=== PATIENT | male | born 1960 | race Caucasian/White ===

== ENCOUNTER 2017-01-13 14:44 | Emergency (ER) | payer OTHER ==
[~2017-01-13] VITALS: Ht 175.3 cm; Wt 77.1 kg
[2017-01-13] MEDS ORDERED: APRI0.37 PO (14:52)
[2017-01-13] MEDS ORDERED: NS 1,000 ML IV ONE (16:30)
[2017-01-13 17:15] LABS: BASO % 0.1 % (0.0-1.0); EOS # 0.1 K/mm3 (0.0-0.50); EOS % 0.5 % (0.0-3.0); LARGE UNSTAINED CELL # 0.1 K/mm3 (0.0-0.4); LARGE UNSTAINED CELL % 0.6 % (0.0-4.0); LYMPH # 0.5 K/mm3 (1.5-4.5); LYMPH % 2.8 % (24.0-44.0); MEAN CORPUSCULAR HEMOGLOBIN 29.3 pg (27.0-33.0); MEAN CORPUSCULAR HGB CONC 33.1 g/dl (32.0-36.5); MEAN CORPUSCULAR VOLUME 88.3 fl (80.0-96.0); MONO # 0.9 K/mm3 (0.0-0.8); MONO % 5.2 % (0.0-5.0); NEUTROPHILS % 90.7 % (36.0-66.0); PLATELET COUNT, AUTOMATED 273 k/mm3 (150-450); RED CELL DISTRIBUTION WIDTH 12.2 % (11.5-14.5); WHITE BLOOD COUNT 16.5 K/mm3 (4.0-10.0)
[2017-01-13 17:34] LABS: ALBUMIN/GLOBULIN RATIO 1.29 (1.00-1.93); ALKALINE PHOSPHATASE 87 U/L (45-117); ALT/SGPT 28 U/L (12-78); ANION GAP 10 MEQ/L (8-16); AST/SGOT 20 U/L (15-37); BILIRUBIN,DIRECT 0.2 MG/DL (0.0-0.2); BILIRUBIN,TOTAL 0.9 MG/DL (0.2-1.0); BLOOD UREA NITROGEN 18 MG/DL (7-18); CALCIUM LEVEL 8.9 MG/DL (8.5-10.1); CARBON DIOXIDE LEVEL 27 MEQ/L (21-32); CHLORIDE LEVEL 105 MEQ/L (98-107); CREATININE FOR GFR 1.04 MG/DL (0.70-1.30); GLOMERULAR FILTRATION RATE > 60.0 (>56); GLUCOSE, FASTING 138 MG/DL (70-105); POTASSIUM SERUM 4.5 MEQ/L (3.5-5.1); SODIUM LEVEL 142 MEQ/L (136-145); TOTAL PROTEIN 7.1 GM/DL (6.4-8.2)
[2017-01-13] MEDS ORDERED: ISOVUE-370 76% 100ML VIAL (Q9967) As Ordered ONE (17:37)
--- NOTE | 2017-01-13 18:40 | REPUSA ---
CLINICAL HISTORY: Abdominal pain. TECHNIQUE: Multiple axial, sagittal and coronal CT images were obtained through the abdomen and pelvi s after administration of intravenous contrast material. COMMENTS: The liver is of uniform attenuation without mass or defect. There is no intra or extrahepatic biliary ductal dilatation. The spleen is normal. The gallbladder is within normal limits. The pancreas is of normal contour and attenuation characteristics. There is no evidence of adrenal mass. Both kidneys demonstrate prompt and equal nephrograms. The kidneys are normal in size, shape and conf iguration. There is no evidence of renal or ureteral mass. No renal or ureteral calculi are identifie d. There is no hydroureter or hydronephrosis. S/p ventral hernia repair. No evidence for appendicitis. There is wall thickening noted involving sigmoid colon compatible wit h colitis. Small amount of free pelvic fluid and inflammatory stranding is seen . Large amount of fe joann material is noted in the right colon. No evidence for small or large bowel obstruction. There i s no evidence of abdominal ascites or lymphadenopathy. There is no evidence of intrinsic or extrinsic bladder mass. There is no pelvic ascites or lymphadeno som. Images of the lung bases show no evidence of pleural or parenchymal mass. There are no pleural effusi ons. The bony structures are free of lytic or blastic lesions. Multilevel degenerative changes are seen in volving the thoracolumbar spine. Scattered calcifications are seen involving the aorta and major bran ches compatible with atherosclerosis. IMPRESSION: There is wall thickening noted involving sigmoid colon compatible with colitis. Small amount of free pelvic fluid and inflammatory stranding is seen Thank you for your kind referral of this patient.
[2017-01-13] MEDS ORDERED: CIPR500T89 PO (18:49)
[2017-01-13] MEDS ORDERED: FLAG500T PO (18:49)
[2017-01-13] MEDS ORDERED: NORCOTAB PO (18:54)
[2017-01-13 18:56] VITALS: BP 129/75
[2017-01-13] MEDS ORDERED: NORCO 5/325MG TABLET (BULK) PO ONE (19:00)
[2017-01-13] MEDS ORDERED: metroNIDAZOLE (FLAGYL) 500 MG TAB PO ONE (19:00)
[2017-01-13] MEDS ORDERED: CIPROFLOXACIN 500 MG TAB PO ONE (19:00)
== END 2017-01-13 19:15 | disposition home or self-care (01) ==
LOC: M ED 15:47
DX: A09 Infectious gastroenteritis and colitis, unspecified (principal); K51.90 Ulcerative colitis, unspecified, without complications; E86.0 Dehydration; R11.10 Vomiting, unspecified; Z79.899 Other long term (current) drug therapy
CPT/HCPCS: 36415; 74177; 80048; 80076; 81001; 83690; 85025; 99282; Q9967

== ENCOUNTER → 2017-01-13 | Outpatient (CLI) | payer OTHER ==
[~2017-01-13] MED LIST: APRI0.37 PO; CIPR500T89 PO; FLAG500T PO; NORCOTAB PO
--- NOTE | 2017-01-14 07:15 | REP ---
Periumbilical pain. PRIORS: None. There is a large amount of content in the colon particularly on the right with a large amount of gas in the left colon. There is gas and stool in the rectum. The organ silhouettes are obscured for the most part with the exception of some visualization of the left kidney. The osseous structures are within normal limits. IMPRESSION: As above. I cannot rule out a volvulus. Signed by Yaakov Melendez DO 01/14/2017 12:05 P
== END ==
LOC: M WUC 14:02
PROVIDERS: ATTEND Physician Assistant
DX: R10.33 Periumbilical pain (principal)

== ENCOUNTER 2017-01-17 10:01 | Inpatient (IN) | payer OTHER ==
[~2017-01-17] VITALS: Ht 175.3 cm; Wt 72.2 kg
[2017-01-17] MEDS ORDERED: ONDA1TAB15 PO (10:10)
[2017-01-17] MEDS ORDERED: POLY1POW4 (10:10)
[2017-01-17] MEDS ORDERED: SM (10:10)
[2017-01-17] MEDS ORDERED: NS 1,000 ML IV ONE (10:30)
[2017-01-17] MEDS ORDERED: MORPHINE 4 MG/ML 1ML SYRINGE IV PRN ×2 (10:30→13:30)
[2017-01-17] MEDS ORDERED: METOCLOPRAMIDE INJ 10MG/2ML VIAL (J2765) IV ONE (10:30)
[2017-01-17 10:50] LABS: BASO % 0.2 % (0.0-1.0); EOS # 0.2 K/mm3 (0.0-0.50); EOS % 1.6 % (0.0-3.0); LARGE UNSTAINED CELL # 0.2 K/mm3 (0.0-0.4); LARGE UNSTAINED CELL % 1.7 % (0.0-4.0); LYMPH % 6.5 % (24.0-44.0); MEAN CORPUSCULAR HEMOGLOBIN 29.9 pg (27.0-33.0); MEAN CORPUSCULAR HGB CONC 33.5 g/dl (32.0-36.5); MEAN CORPUSCULAR VOLUME 89.2 fl (80.0-96.0); MONO # 0.9 K/mm3 (0.0-0.8); MONO % 7.4 % (0.0-5.0); NEUTROPHILS # 10.3 K/mm3 (1.8-7.7); NEUTROPHILS % 82.6 % (36.0-66.0); PLATELET COUNT, AUTOMATED 349 k/mm3 (150-450); RED CELL DISTRIBUTION WIDTH 12.1 % (11.5-14.5); WHITE BLOOD COUNT 12.5 K/mm3 (4.0-10.0)
[2017-01-17 10:52] LABS: INR 1.04
[2017-01-17 11:14] LABS: ALBUMIN 3.4 GM/DL (3.2-5.2); ALBUMIN/GLOBULIN RATIO 0.89 (1.00-1.93); ALKALINE PHOSPHATASE 81 U/L (45-117); ALT/SGPT 15 U/L (12-78); AMYLASE 62 U/L (25-115); ANION GAP 8 MEQ/L (8-16); AST/SGOT 12 U/L (15-37); BILIRUBIN,DIRECT 0.2 MG/DL (0.0-0.2); BILIRUBIN,TOTAL 0.9 MG/DL (0.2-1.0); BLOOD UREA NITROGEN 25 MG/DL (7-18); CALCIUM LEVEL 8.8 MG/DL (8.5-10.1); CARBON DIOXIDE LEVEL 31 MEQ/L (21-32); CHLORIDE LEVEL 96 MEQ/L (98-107); CREATININE FOR GFR 1.09 MG/DL (0.70-1.30); GLOMERULAR FILTRATION RATE > 60.0 (>56); GLUCOSE, FASTING 134 MG/DL (70-105); POTASSIUM SERUM 4.3 MEQ/L (3.5-5.1); SODIUM LEVEL 135 MEQ/L (136-145); TOTAL PROTEIN 7.2 GM/DL (6.4-8.2)
[2017-01-17] MEDS ORDERED: ISOVUE-370 76% 100ML VIAL (Q9967) As Ordered ONE (11:20)
[2017-01-17] MEDS ORDERED: METOCLOPRAMIDE INJ 10MG/2ML VIAL (J2765) IV PRN (13:30)
[2017-01-17] MEDS ORDERED: zolPIDEM TARTRATE 10MG TAB PO PRN (13:30)
[2017-01-17] MEDS ORDERED: MORPHINE 2 MG/ML 1ML SYRINGE IV PRN (13:30)
[2017-01-17] MEDS ORDERED: PROMETHAZINE INJ 25 MG/ML VIAL (J2550) IV PRN (13:30)
[2017-01-17] MEDS ORDERED: ONDANSETRON 4MG/2ML VIAL (J2405) IV PRN (13:30)
--- NOTE | 2017-01-17 13:54 | REP ---
CT ABDOMEN AND PELVIS WITHOUT IV CONTRAST: 01/17/2017. Clinical history: Abdominal pain and distension. Evaluate for small bowel obstruction. Technique: No oral contrast given. A bolus of 100 mL of Isovue 370 given with scanning through the abdomen and pelvis. Coronal and sagittal reconstructions provided. Comparison: CT 01/13/2017. CT abdomen/pelvis: The lung bases show minor dependent atelectatic changes bilaterally and compressive/consolidative atelectasis or infiltrates posterior and medially in both lower lobes. No effusion. The heart is upper limits normal with some left atrial prominence but no pericardial thickening or effusion. No definite hiatal hernia. Stomach filled with fluid. The liver and spleen are not enlarged. There are a couple of splenic calcifications representing old granulomatous disease. There is no hepatic mass or biliary dilatation. Gallbladder is contracted but appears to have some layering sludge. I cannot see any definite calcified gallstone. Adrenal glands are normal. Pancreas unremarkable. Kidneys show function without obstruction, stone, mass, cyst or hydronephrosis. The abdominal aorta shows atherosclerotic calcification without aneurysm or dissection. No periaortic pathologic sized adenopathy. Small bowel loops are dilated proximally to their mid course. There appears to be a caliber change in the upper pelvis left of midline. Fluid filled loops of distal small bowel which are not dilated are seen extending all the way to the ileocecal valve. There is no mesenteric pathologic sized adenopathy or infiltration/edema. There is moderate stool distending the cecum, right colon to the level of the hepatic flexure. Scattered stool and gas seen in the transverse colon proximally and mostly gas in the remainder of the distended transverse colon. Caliber change to the proximal left colon below the splenic flexure with collapse and inflammatory changes of the bowel adjacent to some fluid in the peroneal gutter on the left and all this represents some focal colitis from the distal end of the splenic flexure through the left colon. I do not see a diverticulosis or diverticulitis of the sigmoid. Rectum is fluid-filled without inflammatory changes adjacent. There is fluid in the deep pelvis lateral to the rectum and posterior towards the right of the bladder. No renal stone, hydronephrosis, hydroureter or ureteral stone. No bladder stone or mass. There are multiple surgical clips from prior surgery in the lower pelvis about the right inguinal canal. There is some distension of that canal with omental fat without bowel herniation. Bladder partially filled without stone, wall thickening or mass. Bone windows show spondylosis of the mid and lower thoracic levels at the L1-2 and L5-S1 levels. No compression deformity or destructive lesions are noted. Posterior elements intact. Visualized ribs intact. The hips, SI joints, sacrum, pelvis and lumbosacral junction are without acute finding. Impression: 1. Small bowel obstructive pattern with a transition zone in the left lower quadrant in the upper pelvis but beyond this zone, the small bowel loops more normal caliber are still all fluid-filled. There are no masses or adenopathy. 2. Moderate constipation involving the cecum, right colon to the hepatic flexure with distended transverse colon and scattered gas in the splenic flexure with collapse of the left colon and sigmoid and findings consistent with colitis. Some fluid in that peroneal gutter on the left. 3. There is no sign of perforation, free air or abscess. 4. Patient status post surgery in the left inguinal canal region with fat distending the inguinal canal on the right, but no bowel herniation. 5. The liver, spleen, pancreas, adrenal glands and kidneys grossly intact. 6. The aorta without aneurysm or dissection. 7. The gallbladder with layering sludge but no calcified stone or mass. Signed by Valerio Brunson MD 01/17/2017 04:17 P
[2017-01-17] MEDS ORDERED: MIRA33504 PO (14:24)
[2017-01-17] MEDS: metroNIDAZOLE 500 MG in APPROPRIATE DILUENT 1 EA IV SCH ×2 (14:36→23:47)
[2017-01-17] MEDS: LR 1,000 ML IV SCH (14:36)
[2017-01-17] MEDS: CIPROFLOXACIN 400 MG in APPROPRIATE DILUENT 1 EA IV SCH (18:00)
[2017-01-17 18:26] VITALS: BP 143/78
[2017-01-17 20:00] VITALS: BP 113/69
[2017-01-17] MEDS: IPRATROPIUM 0.5MG/ALBUTEROL 2.5MG INH SOL UD 3ML (DUONEB)(J7620) NEB SCH (21:34)
[2017-01-17] MEDS: HEPARIN SOD (PORCINE) 5000 UNITS/ML VIAL SQ SCH (21:36)
[2017-01-18] VITALS: BP 109/66
[2017-01-18] MEDS: LR 1,000 ML IV SCH ×4 (01:21→20:13)
[2017-01-18] MEDS: CIPROFLOXACIN 400 MG in APPROPRIATE DILUENT 1 EA IV SCH ×2 (01:22→13:35)
[2017-01-18 04:00] VITALS: BP 105/60
[2017-01-18] MEDS: metroNIDAZOLE 500 MG in APPROPRIATE DILUENT 1 EA IV SCH ×3 (06:44→22:14)
[2017-01-18] MEDS: IPRATROPIUM 0.5MG/ALBUTEROL 2.5MG INH SOL UD 3ML (DUONEB)(J7620) NEB SCH ×4 (07:24→19:40)
[2017-01-18 07:44] LABS: MEAN CORPUSCULAR HEMOGLOBIN 30.4 pg (27.0-33.0); MEAN CORPUSCULAR HGB CONC 34.6 g/dl (32.0-36.5); WHITE BLOOD COUNT 10.6 K/mm3 (4.0-10.0)
[2017-01-18 07:52] LABS: ANION GAP 11 MEQ/L (8-16); BLOOD UREA NITROGEN 21 MG/DL (7-18); CARBON DIOXIDE LEVEL 28 MEQ/L (21-32); CHLORIDE LEVEL 100 MEQ/L (98-107); CREATININE FOR GFR 0.91 MG/DL (0.70-1.30); GLOMERULAR FILTRATION RATE > 60.0 (>56); GLUCOSE, FASTING 119 MG/DL (70-105); POTASSIUM SERUM 3.6 MEQ/L (3.5-5.1); SODIUM LEVEL 139 MEQ/L (136-145)
[2017-01-18] MEDS: PANTOPRAZOLE 40MG INJ (PROTONIX) (C9113) IV SCH (08:25)
[2017-01-18] MEDS: HEPARIN SOD (PORCINE) 5000 UNITS/ML VIAL SQ SCH ×2 (08:25→20:12)
[2017-01-18 08:30] VITALS: BP 120/65
--- NOTE | 2017-01-18 11:14 | REP ---
ABDOMINAL SERIES: Three views. HISTORY: Small bowel obstruction. Comparison study January 13, 2017. FINDINGS: A nasogastric tube has been passed into the distal stomach. The lungs are exposed at a relatively low level of inspiration. No free subdiaphragmatic air is seen. There are some increased markings in both bases consistent with bibasilar atelectatic changes. Supine and erect views of the abdomen show air fluid levels in multiple loops of dilated upper abdominal small and large bowel. The colonic distension has improved somewhat. The small bowel loop appears somewhat more prominent. There are clips and hernia repair sutures in the lower abdomen and pelvis. There is formed stool in the right colon. IMPRESSION: Dilated large and small bowel loops with multiple air-fluid levels. The small bowel distension is not improved. No definite free air. Bibasilar atelectasis. NG tube in place. Signed by Amando Tejada MD 01/18/2017 02:01 P
--- NOTE | 2017-01-18 11:27 | HPE ---
DATE OF ADMISSION: 01/18/2017 CHIEF COMPLAINT: Crampy abdominal pain, nausea and vomiting. HISTORY OF PRESENT ILLNESS: The patient is a 56-year-old gentleman who presents with a visit to the emergency room over the weekend after having some nausea, vomiting and diarrhea. Was found to have possible enteritis. Was seen in the emergency room, diagnosis of possible colitis given a CT scan showed some possible thickening and this was felt to be infectious colitis. It was felt that this probably was viral given that he was not started on antibiotics. Did have an elevated white count of 16,000 on that visit and was discharged to home. He noticed that he had some improvement of his abdominal pain but then that worsened over the last 12 hours prior to admission with crampy abdominal pain, nausea, vomiting. They attempted to place nasogastric tube in the emergency room and unfortunately were unable to get this and since that time he had discomfort, crampy abdominal pain, which had been not improving. He has had no fevers or chills. He does have a history of colitis in the past and has been on some Apriso for this colitis, although was seen earlier this week in Dr. Casillas's office and did not seem to have an "active ulcerative colitis episode" and thus was not started on steroids at that time, ended up coming to the emergency room for further evaluation. He has been on some pain medication since his visit to the emergency room the other day. PAST MEDICAL HISTORY: Significant for history of ulcerative colitis, history of inguinal hernia surgery, history of bowel obstruction as a child, history of left hydrocele operationg. MEDICATIONS: Include: - Apriso - Zofran - MiraLax - hydrocodone PHYSICAL EXAMINATION: Reveals a 56-year-old male who looks stated age. HEENT is unremarkable. NECK: Supple without adenopathy. LUNGS: Clear to auscultation without crackles, wheezes or rhonchi. HEART: Regular. ABDOMEN: Significantly distended and tympanitic in the epigastric area, mildly tender throughout with some guarding appreciated without rebound. No significant peritoneal signs but he is quite distended at this point. I am not feeling any hernias or masses appreciated. IMPRESSION/PLAN: The patient has evidence of a small bowel obstruction on his x-rays. The question is whether this is a small bowel obstruction secondary to an infectious etiology or whether this is secondary to adhesions. I was able to place an nasogastric tube and was able to suction some fluid out. Hopefully, we will have some significant improvement/relief of the symptoms soon. We will treat him empirically with antibiotics as well given that his white count is still elevated and I am concerned, as I said previously, there may be some etiology of infectious component or in the infectious component caused some inflammatory process that now is causing this bowel obstructions. It is hard to know but we will treat him as if this is a possibility. Less likely is progressive / inflammatory bowel as contributing to his problem. Given the current issues, I do feel that it is reasonable to have him admitted to the hospital, IV fluids, IV antibiotics, nothing by mouth, and nasogastric tube to low to low intermittent suction. We will get follow-up x-rays tomorrow, as well as labs for reevaluation.
--- NOTE | 2017-01-18 11:30 | IPN ---
DATE: 01/18/2017 The patient was admitted last night for a small obstruction and overnight has improved substantially from his standpoint. He is having less abdominal pain, less abdominal discomfort. Has not had any flatus or bowel movements. No nausea or vomiting. He still having some nasogastric tube output but overall he states the severe crampy abdominal pain has resolved. He did have some low grade fevers overnight but those have improved as well. He had a followup white count today that was down to 10.6. Otherwise he feels well. His , who is present, also states that he looks better, looks more comfortable and is doing better overall this morning. PHYSICAL EXAMINATION: LUNGS: Diminished bilaterally at the bases. ABDOMEN: Softly distended but still tympanitic, still some mild tenderness but significantly improved from yesterday. IMPRESSION AND PLAN: The patient has improvement clinically on the small bowel obstruction. I would like to see how his x-rays look. I anticipate we will have some improvement but without bowel movements we will keep him nothing by mouth still, and I anticipated it may be a few more days before he resolves this bowel obstruction, we will have to see. Once again, if his white count drops to normal and his obstruction resolves this may have had infectious component to it. In any case, we will see how he does over the next 24 hours and reevaluate him at that time.
[2017-01-18 12:04] VITALS: BP 111/61
[2017-01-18 16:00] VITALS: BP 118/67
[2017-01-18 20:00] VITALS: BP 126/57
[2017-01-19] VITALS (7 sets, daily range): BP systolic 107–128; BP diastolic 65–75; O2SAT 94
[2017-01-19] MEDS: CIPROFLOXACIN 400 MG in APPROPRIATE DILUENT 1 EA IV SCH ×2 (01:37→14:33)
[2017-01-19] MEDS: metroNIDAZOLE 500 MG in APPROPRIATE DILUENT 1 EA IV SCH ×3 (06:14→22:43)
[2017-01-19 06:50] LABS: MEAN CORPUSCULAR HEMOGLOBIN 29.6 pg (27.0-33.0); MEAN CORPUSCULAR HGB CONC 33.3 g/dl (32.0-36.5); MEAN CORPUSCULAR VOLUME 88.8 fl (80.0-96.0); RED CELL DISTRIBUTION WIDTH 11.7 % (11.5-14.5); WHITE BLOOD COUNT 10.7 K/mm3 (4.0-10.0)
[2017-01-19 07:06] LABS: ANION GAP 5 MEQ/L (8-16); BLOOD UREA NITROGEN 18 MG/DL (7-18); CALCIUM LEVEL 7.9 MG/DL (8.5-10.1); CARBON DIOXIDE LEVEL 32 MEQ/L (21-32); CHLORIDE LEVEL 105 MEQ/L (98-107); CREATININE FOR GFR 0.89 MG/DL (0.70-1.30); GLOMERULAR FILTRATION RATE > 60.0 (>56); GLUCOSE, FASTING 111 MG/DL (70-105); POTASSIUM SERUM 4.2 MEQ/L (3.5-5.1); SODIUM LEVEL 142 MEQ/L (136-145)
[2017-01-19] MEDS: IPRATROPIUM 0.5MG/ALBUTEROL 2.5MG INH SOL UD 3ML (DUONEB)(J7620) NEB SCH ×4 (08:07→20:00)
[2017-01-19] MEDS: LR 1,000 ML IV SCH (08:49)
[2017-01-19] MEDS: PANTOPRAZOLE 40MG INJ (PROTONIX) (C9113) IV SCH (08:49)
[2017-01-19] MEDS: HEPARIN SOD (PORCINE) 5000 UNITS/ML VIAL SQ SCH ×2 (08:49→21:05)
--- NOTE | 2017-01-19 08:50 | REP ---
Abdomen series: Two views. History: Small bowel obstruction. Comparison study January 18, 2017. Findings: Supine and erect views of the abdomen demonstrate a nasogastric tube terminating the right upper quadrant in the region of the pylorus or proximal duodenum. There are multiple air-fluid levels again noted in moderately to markedly dilated central abdominal small bowel loops. There may be a dilated transverse colon lobe as well. Pattern is unchanged from the previous day's radiographs. There are is some evidence of mural thickening. No evidence of free air. Clips and sutures in the lower abdomen and pelvis as before. Signed by Amando Tejada MD 01/19/2017 09:38 A
[2017-01-20] VITALS: BP 107/64
[2017-01-20] MEDS: CIPROFLOXACIN 400 MG in APPROPRIATE DILUENT 1 EA IV SCH ×2 (02:50→14:19)
[2017-01-20] MEDS: LR 1,000 ML IV SCH ×3 (03:04→23:55)
[2017-01-20 04:00] VITALS: BP 100/69
[2017-01-20] MEDS: metroNIDAZOLE 500 MG in APPROPRIATE DILUENT 1 EA IV SCH ×3 (06:57→23:55)
[2017-01-20 07:19] LABS: MEAN CORPUSCULAR HEMOGLOBIN 30.1 pg (27.0-33.0); MEAN CORPUSCULAR HGB CONC 33.6 g/dl (32.0-36.5); MEAN CORPUSCULAR VOLUME 89.6 fl (80.0-96.0); RED CELL DISTRIBUTION WIDTH 11.9 % (11.5-14.5); WHITE BLOOD COUNT 11.1 K/mm3 (4.0-10.0)
[2017-01-20] MEDS: IPRATROPIUM 0.5MG/ALBUTEROL 2.5MG INH SOL UD 3ML (DUONEB)(J7620) NEB SCH ×4 (07:19→20:00)
[2017-01-20 07:30] LABS: ANION GAP 8 MEQ/L (8-16); BLOOD UREA NITROGEN 17 MG/DL (7-18); CALCIUM LEVEL 7.7 MG/DL (8.5-10.1); CARBON DIOXIDE LEVEL 26 MEQ/L (21-32); CHLORIDE LEVEL 105 MEQ/L (98-107); CREATININE FOR GFR 0.77 MG/DL (0.70-1.30); GLOMERULAR FILTRATION RATE > 60.0 (>56); GLUCOSE, FASTING 107 MG/DL (70-105); POTASSIUM SERUM 3.9 MEQ/L (3.5-5.1); SODIUM LEVEL 139 MEQ/L (136-145)
[2017-01-20 08:00] VITALS: BP 114/63
--- NOTE | 2017-01-20 09:02 | REP ---
Abdomen series: Three views. History: Small bowel obstruction. Comparison study: January 19, 2017. Findings: An NG tube remains in place terminating the right upper quadrant. Dilated small bowel loops persist in the abdomen perhaps slightly improved. There is some stool in the proximal and distal colon. Impression: Persistent dilation of small bowel loops in the central abdomen slightly improved from yesterday's radiographs. No evidence of free air. Signed by Amando Tejada MD 01/20/2017 09:54 A
[2017-01-20] MEDS: HEPARIN SOD (PORCINE) 5000 UNITS/ML VIAL SQ SCH ×2 (09:35→20:50)
[2017-01-20] MEDS: PANTOPRAZOLE 40MG INJ (PROTONIX) (C9113) IV SCH (09:35)
[2017-01-20 12:00] VITALS: BP 119/66
[2017-01-20 16:00] VITALS: BP 123/68
[2017-01-20 20:00] VITALS: BP 119/68
[2017-01-21] VITALS: BP 116/66
[2017-01-21] MEDS: CIPROFLOXACIN 400 MG in APPROPRIATE DILUENT 1 EA IV SCH ×2 (02:37→14:25)
[2017-01-21 04:00] VITALS: BP 106/68
[2017-01-21] MEDS: metroNIDAZOLE 500 MG in APPROPRIATE DILUENT 1 EA IV SCH ×2 (06:45→14:25)
[2017-01-21 06:56] LABS: MEAN CORPUSCULAR HEMOGLOBIN 30.3 pg (27.0-33.0); MEAN CORPUSCULAR HGB CONC 34.4 g/dl (32.0-36.5); RED CELL DISTRIBUTION WIDTH 11.7 % (11.5-14.5); WHITE BLOOD COUNT 9.9 K/mm3 (4.0-10.0)
[2017-01-21 07:10] LABS: ANION GAP 8 MEQ/L (8-16); BLOOD UREA NITROGEN 16 MG/DL (7-18); CALCIUM LEVEL 7.4 MG/DL (8.5-10.1); CARBON DIOXIDE LEVEL 26 MEQ/L (21-32); CHLORIDE LEVEL 104 MEQ/L (98-107); CREATININE FOR GFR 0.77 MG/DL (0.70-1.30); GLOMERULAR FILTRATION RATE > 60.0 (>56); GLUCOSE, FASTING 106 MG/DL (70-105); SODIUM LEVEL 138 MEQ/L (136-145)
[2017-01-21] MEDS: IPRATROPIUM 0.5MG/ALBUTEROL 2.5MG INH SOL UD 3ML (DUONEB)(J7620) NEB SCH ×3 (07:29→15:36)
[2017-01-21 08:00] VITALS: BP 118/63
[2017-01-21] MEDS: PANTOPRAZOLE 40MG INJ (PROTONIX) (C9113) IV SCH (08:22)
[2017-01-21] MEDS: HEPARIN SOD (PORCINE) 5000 UNITS/ML VIAL SQ SCH (08:22)
--- NOTE | 2017-01-21 09:28 | REP ---
Clinical: Follow up small bowel obstruction. Comparison: 01/20/2017. Technique: Upright and supine views of the abdomen and pelvis. Findings: Nasogastric tube in satisfactory stable position. The bowel gas pattern is relatively nonspecific and without definite bowel obstruction. Fecal stasis and constipation cannot be excluded. No postsurgical changes overlie the pelvis. Skeletal structures stable. No acute abnormal calcifications. Impression: Nonspecific bowel gas pattern. Nasogastric tube in satisfactory stable position. Signed by Iban Morelos MD 01/21/2017 09:19 A
[2017-01-21 12:00] VITALS: BP 126/70
[2017-01-21 16:00] VITALS: BP 118/74
== END 2017-01-21 18:27 | disposition home or self-care (01) | DRG 390 ==
LOC: M ED 11:10 → M ED INP 13:29 → M PED 18:19
PROVIDERS: ADMIT Surgery; ATTEND Surgery
DX: K56.60 Unspecified intestinal obstruction (principal); Z79.899 Other long term (current) drug therapy

== ENCOUNTER 2017-01-27 08:44 | Emergency (ER) | payer OTHER ==
[~2017-01-27] VITALS: Ht 175.3 cm; Wt 78.0 kg
[~2017-01-27 08:44] MED LIST changes: +MIRA33504 PO; +ONDA1TAB15 PO; +POLY1POW4; +SM
--- NOTE | 2017-01-27 10:55 | REP ---
Clinical: Pain and swelling . Technique: York scale and color Doppler evaluation using linear high frequency transducer. Findings: Ultrasound examination of the left lower extremity deep venous structures from the common femoral vein to the popliteal vein demonstrates normal compressibility flow and wave patterns in response to respiration and augmentation. There is no evidence for deep venous thrombosis. Impression: No evidence for deep venous thrombosis. Signed by Iban Morelos MD 01/27/2017 10:47 A
[2017-01-27 11:02] VITALS: BP 120/77
[2017-01-27] MEDS ORDERED: CYCL10TA PO (11:05)
== END 2017-01-27 11:12 | disposition home or self-care (01) ==
LOC: M ED 09:32
DX: M79.662 Pain in left lower leg (principal)

== ENCOUNTER → 2017-02-13 | Outpatient (CLI) | payer OTHER ==
[~2017-02-13] MED LIST changes: +CYCL10TA PO; +E-Z PAQUE 60% w/v SUSP 355ML BOTTLE As Ordered ONE; +E-Z-GAS II EFFERVESCENT PACKET (SODIUM BICARB./CITRIC ACID/SIMETHICONE) As Ordered ONE; +E-Z-HD 98% w/w 340GM SUSP BTL As Ordered ONE
--- NOTE | 2017-02-13 16:54 | REP ---
UPPER GI AIR CONTRAST AND SMALL BOWEL FOLLOW-THROUGH: The procedure was performed under the direct supervision of Dr. Brunson. The images were reviewed with Dr. Brunson. The rn ostomy film shows no organomegaly or pathological masses. The intestinal gas pattern is nonspecific. There are surgical clips and coils in the abdomen consistent with the patient's history of prior hernia repair. Liquid barium and gas producing granules were given in the erect position as well as liquid barium in the prone oblique position in order to perform a double contrast upper GI examination. Additionally liquid barium was given at the end of the examination in order to perform a small bowel follow-through. The oral and pharyngeal stages of deglutition are unremarkable. Esophageal transport is prompt and efficient and there is no esophagitis, stricture, mucosal ring, or hiatal hernia. There is full column gastroesophageal reflux demonstrated to above the level of the abby. The stomach san are normally outlined. The rugal folds are smooth and regular. There is no gastritis, neoplasm or ulcer disease. The duodenal san are normally outlined. The mucosal folds are smooth and regular. There is no duodenitis, pancreatitis, peptic ulcer disease, or neoplasm. The visualized portion of the proximal small bowel appears normal in course and caliber. The barium column was followed through the small bowel to the level of the terminal ileum. Small bowel transit time was approximately 5 hours and 50 minutes. Ballottement was performed by Dr. Brunson. In the distal ileum there is a long segment of persistent narrowing with loop separation. The terminal ileum is normal appearance. The remainder of the proximal small appears normal in appearance. IMPRESSION: In the distal ileum there is a long segment of persistent narrowing with loop separation. The terminal ileum was unremarkable. The remainder of the small bowel is unremarkable. 5 minutes and 6 seconds of fluoroscopy time was utilized for this procedure. Reviewed by SILVIA Tran 02/13/2017 05:11 PEdited and Signed by Valerio Brunson MD 02/14/2017 07:44 A
== END ==
LOC: M RAD 08:17
PROVIDERS: ATTEND Surgery
DX: R10.9 Unspecified abdominal pain (principal)

== ENCOUNTER → 2017-02-19 | Outpatient (CLI) | payer OTHER ==
[~2017-02-19] MED LIST changes: -E-Z PAQUE 60% w/v SUSP 355ML BOTTLE As Ordered ONE; -E-Z-GAS II EFFERVESCENT PACKET (SODIUM BICARB./CITRIC ACID/SIMETHICONE) As Ordered ONE; -E-Z-HD 98% w/w 340GM SUSP BTL As Ordered ONE
== END ==
LOC: M LAB 09:24
PROVIDERS: ATTEND Internal Medicine Gastroenterology
DX: K51.512 Left sided colitis with intestinal obstruction (principal); K51.318 Ulcerative (chronic) rectosigmoiditis with other complication

== ENCOUNTER → 2017-04-08 | Outpatient (CLI) | payer OTHER ==
[~2017-04-08] VITALS: Ht 175.3 cm; Wt 74.4 kg
[~2017-04-08] MED LIST changes: +BUDE3CAP PO; +CLEO300C2 PO; +LIDOCAINE 2% INJ 100 MG/5 ML SDV (FOR ANES.) As Ordered ONE; +NS 1,000 ML IV ONE; +PROPOFOL 500 MG/50 ML VIAL As Ordered ONE
--- NOTE | 2017-04-08 12:01 | ROOR ---
Patient Name: Jim Hernandez Procedure Date: 04/08/2017 11:37 AM Date of : 1960 Age: 57 Room: [facility] Gender: Male Note Status: Finalized Procedure: Upper GI endoscopy Indications: Oropharyngeal phase dysphagia, Dysphagia Providers: Ricky CASILLAS MD Referring MD: Dawit Washington MD Requesting Provider: Medicines: Monitored Anesthesia Care Complications: No immediate complications. Procedure: Pre-Anesthesia Assessment: - The heart rate, respiratory rate, oxygen saturations, blood pressure, adequacy of pulmonary ventilation, and response to care were monitored throughout the procedure. The Endoscope was introduced through the mouth, and advanced to the second part of duodenum. The upper GI endoscopy was accomplished without difficulty. The patient tolerated the procedure well. Findings: The stomach was normal. The examined duodenum was normal. No endoscopic abnormality was evident in the esophagus to explain the patient's complaint of dysphagia. It was decided, however, to proceed with dilation of the entire esophagus. The scope was withdrawn. Dilation was performed with a Sutton dilator with no resistance at 52 Fr. The Z-line was irregular and was found 34 cm from the incisors. This was biopsied with a cold forceps for histology. Impression: - Normal esophagus. The Z-line was irregular and was found 34 cm from the incisors. This was biopsied with a cold forceps for histology - Normal stomach. - Normal examined duodenum. - No endoscopic esophageal abnormality to explain patient's dysphagia. Esophagus dilated with sutton dilator. - No specimens collected. Recommendation: - Observe patient's clinical course. - Telephone endoscopist for pathology results in 2 weeks. - Stop the Budesonide, Continue the Apriso. - Continue Miralax every day. - Return to my office in 1 month. - To discuss todays findings, my office will call you in the next few days to schedule a follow up appointment. Ricky Casillas MD Ricky CASILLAS MD 04/08/2017 12:01:18 PM This report has been signed electronically. Number of Addenda: 0 Note Initiated On: 04/08/2017 11:37 AM Estimated Blood Loss: Estimated blood loss: none.
[2017-04-08 12:25] VITALS: BP 122/88
== END | disposition home or self-care (01) ==
LOC: M OPP 10:22
PROVIDERS: ATTEND Internal Medicine Gastroenterology
DX: K22.8 Other specified diseases of esophagus (principal); K22.70 Barrett's esophagus without dysplasia; K51.90 Ulcerative colitis, unspecified, without complications; Z86.718 Personal history of other venous thrombosis and embolism; Z87.19 Personal history of other diseases of the digestive system; Z79.899 Other long term (current) drug therapy

== ENCOUNTER 2017-04-16 19:07 | Emergency (ER) | payer OTHER ==
[~2017-04-16] VITALS: Ht 172.7 cm; Wt 74.4 kg
[~2017-04-16 19:07] MED LIST changes: -CLEO300C2 PO; -LIDOCAINE 2% INJ 100 MG/5 ML SDV (FOR ANES.) As Ordered ONE; -NS 1,000 ML IV ONE; -PROPOFOL 500 MG/50 ML VIAL As Ordered ONE
--- NOTE | 2017-04-16 21:20 | REPUSA ---
Clinical history: Pain, swelling. Findings: The left common femoral, superficial femoral, popliteal, and other deep venous structures c ompress normally and demonstrate normal color Doppler flow. Normal venous waveforms with augmentation are seen. Impression: No evidence of deep vein thrombosis in the left femoral popliteal venous system.
[2017-04-16] MEDS ORDERED: CLEO300C2 PO (21:25)
[2017-04-16 21:29] VITALS: BP 132/68
[2017-04-16] MEDS ORDERED: CLINDAMYCIN 150 MG CAP PO ONE (21:30)
== END 2017-04-16 21:35 | disposition home or self-care (01) ==
LOC: M ED 19:41
DX: L03.116 Cellulitis of left lower limb (principal); Z86.718 Personal history of other venous thrombosis and embolism; Z79.899 Other long term (current) drug therapy

== ENCOUNTER → 2018-06-26 | Outpatient (CLI) | payer OTHER ==
[2018-06-26 10:45] LABS: BASO # 0.1 10^3/uL (0.0-0.2); EOS # 0.3 10^3/uL (0.0-0.50); EOS % 4.7 % (0.0-3.0); HEMATOCRIT 44.8 % (42.0-52.0); HEMOGLOBIN 14.8 g/dl (13.5-17.5); IMMATURE GRANULOCYTE % 0.2 % (0-3.0); LYMPH % 33.1 % (24.0-44.0); MEAN CORPUSCULAR HEMOGLOBIN 30.1 pg (27.0-33.0); MEAN CORPUSCULAR VOLUME 91.2 fl (80.0-96.0); MONO # 0.7 10^3/uL (0.0-0.8); MONO % 11.5 % (0.0-5.0); NEUTROPHILS % 49.5 % (36.0-66.0); PLATELET COUNT, AUTOMATED 227 10^3/uL (150-450); RED BLOOD COUNT 4.91 10^6/uL (4.30-6.10); RED CELL DISTRIBUTION WIDTH 12.3 % (11.5-14.5)
[2018-06-26 11:22] LABS: ALBUMIN/GLOBULIN RATIO 1.33 (1.00-1.93); ALKALINE PHOSPHATASE 79 U/L (45-117); ALT/SGPT 34 U/L (12-78); ANION GAP 5 MEQ/L (8-16); AST/SGOT 26 U/L (7-37); BILIRUBIN,TOTAL 0.9 MG/DL (0.2-1.0); BLOOD UREA NITROGEN 20 MG/DL (7-18); CALCIUM LEVEL 8.4 MG/DL (8.5-10.1); CARBON DIOXIDE LEVEL 28 MEQ/L (21-32); CHLORIDE LEVEL 108 MEQ/L (98-107); CHOLESTEROL LEVEL 165 MG/DL (<200); CHOLESTEROL RISK RATIO 2.171 (<5); CREATININE FOR GFR 1.09 MG/DL (0.70-1.30); GLOMERULAR FILTRATION RATE > 60.0 (>56); GLUCOSE, FASTING 109 MG/DL (70-100); HDL CHOLESTEROL 76 MG/DL (>40); LDL CHOLESTEROL 73.6 MG/DL (<100); NON-HDL-C 89 MG/DL; POTASSIUM SERUM 4.1 MEQ/L (3.5-5.1); SODIUM LEVEL 141 MEQ/L (136-145); TRIGLYCERIDES LEVEL 77 MG/DL (<150)
== END ==
LOC: M WUC 08:29
DX: Z00.00 Encounter for general adult medical examination without abnormal findings (principal)
CPT/HCPCS: 80053

== ENCOUNTER → 2018-12-15 | Outpatient (CLI) | payer OTHER ==
[~2018-12-15] MED LIST changes: +CIPR-249 PO; -CIPR500T89 PO; +CLEO300C2 PO; -ONDA1TAB15 PO; +ONDA4TAB5 PO; -POLY1POW4; +POLY33503
--- NOTE | 2018-12-15 10:42 | REP ---
Chest two views HISTORY: Cough Comparison: None An increase in interstitial markings is present in the lungs consistent with chronic interstitial change. Patchy density is present in the right lower lobe consistent with atelectasis or infiltrate. The heart is normal in size. The pulmonary vasculature is normal in appearance. The bony structure is intact. IMPRESSION: 1. Chronic interstitial change. 2. Right lower lobe atelectasis or infiltrate. Electronically Signed by Kit Cash MD 12/15/2018 10:34 A
== END ==
LOC: M WUC 09:27
PROVIDERS: ATTEND Physician Assistant
DX: R05 Cough (principal); J84.9 Interstitial pulmonary disease, unspecified

== ENCOUNTER → 2019-01-14 | Outpatient (CLI) | payer OTHER ==
--- NOTE | 2019-01-15 02:44 | REP ---
Clinical: Chest pain. Pneumonia. Technique: PA and lateral views of the chest. Comparison: 12/15/2018 Findings: Mediastinum and cardiac silhouette are stable. Previously suggested bibasilar atelectasis/infiltrates appear resolved. No acute consolidation, effusion, or pneumothorax. Skeletal structures are intact. Prominent gaseous distension of the visualized enteric system noted. Impression: No acute consolidation. Previously suspected basilar atelectasis/infiltrates have resolved. Electronically Signed by Iban Morelos MD 01/15/2019 02:35 A
== END ==
LOC: M WUC 17:52
PROVIDERS: ATTEND Family Medicine
DX: J18.9 Pneumonia, unspecified organism (principal)

== ENCOUNTER → 2019-06-24 | Day surgery (SDC) | payer OTHER ==
[~2019-06-24] VITALS: Ht 175.3 cm; Wt 74.3 kg
[~2019-06-24] MED LIST changes: +HYDR-3715 PO; +LIDOCAINE 2% INJ 100 MG/5 ML SDV (FOR ANES.) As Ordered ONE; -NORCOTAB PO; +PROPOFOL 200 MG/20 ML VIAL As Ordered ONE
[2019-06-24] MEDS: NS 1,000 ML IV ONE (09:14)
--- NOTE | 2019-06-24 10:22 | ROOR ---
Patient Name: Jim Hernandez Procedure Date: 06/24/2019 9:58 AM Date of : 1960 Age: 59 Room: [facility] Gender: Male Note Status: Finalized Procedure: Colonoscopy Indications: Follow-up of volvulus Providers: DO Jc Bartlett MD: Dawit Washington MD Requesting Provider: Medicines: Propofol per Anesthesia Complications: No immediate complications. Procedure: Pre-Anesthesia Assessment: - Prior to the procedure, a History and Physical was performed, and patient medications and allergies were reviewed. The patient is competent. The risks and benefits of the procedure and the sedation options and risks were discussed with the patient. All questions were answered and informed consent was obtained. Patient identification and proposed procedure were verified by the physician, the nurse, the anesthesiologist and the line technician in the endoscopy suite. Mental Status Examination: alert and oriented. Airway Examination: normal oropharyngeal airway and neck mobility. Respiratory Examination: clear to auscultation. CV Examination: normal. Prophylactic Antibiotics: The patient does not require prophylactic antibiotics. Prior Anticoagulants: The patient has taken no previous anticoagulant or antiplatelet agents. ASA Grade Assessment: II - A patient with mild systemic disease. After reviewing the risks and benefits, the patient was deemed in satisfactory condition to undergo the procedure. The anesthesia plan was to use monitored anesthesia care (MAC). Immediately prior to administration of medications, the patient was re-assessed for adequacy to receive sedatives. The heart rate, respiratory rate, oxygen saturations, blood pressure, adequacy of pulmonary ventilation, and response to care were monitored throughout the procedure. The physical status of the patient was re-assessed after the procedure. The Colonoscope was introduced through the anus with the intention of advancing to the cecum. The scope was advanced to the transverse colon before the procedure was aborted. Medications were not given. The colonoscopy was technically difficult and complex due to abnormal anatomy. Successful completion of the procedure was aided by applying abdominal pressure. The patient tolerated the procedure well. Findings: The sigmoid colon revealed grossly excessive looping. The exam was otherwise without abnormality on direct and retroflexion views. Impression: - There was significant looping of the colon. - The examination was otherwise normal on direct and retroflexion views. - No specimens collected. Recommendation: - Patient has a contact number available for emergencies. The signs and symptoms of potential delayed complications were discussed with the patient. Return to normal activities tomorrow. Written discharge instructions were provided to the patient. - Repeat colonoscopy in 1 year for screening purposes. - Return to my office in 1 week. Soto Cope DO 06/24/2019 10:21:58 AM Electronically signed by Soto Cope DO Number of Addenda: 0 Note Initiated On: 06/24/2019 9:58 AM Estimated Blood Loss: Estimated blood loss: none.
[2019-06-24 10:51] VITALS: BP 120/65
== END | disposition home or self-care (01) ==
LOC: M OPP 08:18
PROVIDERS: ATTEND Surgery
DX: K56.2 Volvulus (principal); Z79.899 Other long term (current) drug therapy

== ENCOUNTER → 2019-08-10 | Outpatient (CLI) | payer OTHER ==
[~2019-08-10] MED LIST changes: -LIDOCAINE 2% INJ 100 MG/5 ML SDV (FOR ANES.) As Ordered ONE; -PROPOFOL 200 MG/20 ML VIAL As Ordered ONE
[2019-08-10 20:33] LABS: HEMATOCRIT 42.9 % (42.0-52.0); MEAN CORPUSCULAR HEMOGLOBIN 29.4 pg (27.0-33.0); MEAN CORPUSCULAR HGB CONC 32.6 g/dl (32.0-36.5); MEAN CORPUSCULAR VOLUME 89.9 fl (80.0-96.0); PLATELET COUNT, AUTOMATED 277 10^3/uL (150-450); RED BLOOD COUNT 4.77 10^6/uL (4.30-6.10); WHITE BLOOD COUNT 8.5 10^3/uL (4.0-10.0)
[2019-08-10 20:34] LABS: ALT/SGPT 31 U/L (12-78); BILIRUBIN,TOTAL 0.7 MG/DL (0.2-1.0); BLOOD UREA NITROGEN 25 MG/DL (7-18); CALCIUM LEVEL 8.8 MG/DL (8.5-10.1); CARBON DIOXIDE LEVEL 25 MEQ/L (21-32); CHLORIDE LEVEL 107 MEQ/L (98-107); CREATININE FOR GFR 1.05 MG/DL (0.70-1.30); GLOMERULAR FILTRATION RATE > 60.0 (>56); GLUCOSE, FASTING 87 MG/DL (70-100); POTASSIUM SERUM 4.1 MEQ/L (3.5-5.1); SODIUM LEVEL 141 MEQ/L (136-145); TOTAL PROTEIN 6.9 GM/DL (6.4-8.2)
== END ==
LOC: M WUC 18:34
PROVIDERS: ATTEND Family Medicine
DX: Z01.812 Encounter for preprocedural laboratory examination (principal)

== ENCOUNTER 2019-08-24 09:07 | Inpatient (IN) | payer OTHER ==
[2019-08-24] VITALS (8 sets, daily range): BP systolic 108–128; BP diastolic 61–76; O2SAT 97
[~2019-08-24] VITALS: Ht 175.3 cm; Wt 75.9 kg
[~2019-08-24 09:07] MED LIST changes: +ERTAPENEM SODIUM 1 GM in NS MINI-BAG PLUS 50 ML IV ONE; +LR 1,000 ML IV ONE
[2019-08-24] MEDS ORDERED: ROCURONIUM BROMIDE 50 MG/5 ML VIAL As Ordered ONE ×3 (11:30→15:03)
[2019-08-24] MEDS ORDERED: LIDOCAINE 2% INJ 100 MG/5 ML SDV (FOR ANES.) As Ordered ONE (11:30)
[2019-08-24] MEDS ORDERED: fentaNYL 250 MCG/5 ML INJECTION (J3010) As Ordered ONE (11:30)
[2019-08-24] MEDS ORDERED: PROPOFOL 200 MG/20 ML VIAL As Ordered ONE ×2 (11:30→11:56)
[2019-08-24] MEDS ORDERED: ONDANSETRON 4MG/2ML VIAL (J2405) As Ordered ONE (11:30)
[2019-08-24] MEDS ORDERED: dexameTHASONE 4 MG/ML 1ML VIAL (J1100) As Ordered ONE (11:30)
[2019-08-24] MEDS ORDERED: MIDAZOLAM INJ 2 MG/2 ML VIAL (J2250) As Ordered ONE (11:31)
[2019-08-24] MEDS ORDERED: BUPIVACAINE/EPIN 0.25% 30 ML VIAL As Ordered ONE (12:23)
[2019-08-24] MEDS ORDERED: ACETAMINOPHEN 1000MG 100ML IV BTL (OFIRMEV) (J0131 PER 10MG) As Ordered ONE (13:57)
[2019-08-24] MEDS ORDERED: KETOROLAC 60 MG/2 ML VIAL (J1885) As Ordered ONE (13:58)
[2019-08-24] MEDS ORDERED: SUGAMMADEX SODIUM 500 MG/5 ML VIAL (BRIDION) As Ordered ONE (13:59)
[2019-08-24] MEDS ORDERED: HYDROmorphone HCL 2 MG/ML 1ML VIAL (J1170) As Ordered ONE (14:00)
[2019-08-24] MEDS ORDERED: METOCLOPRAMIDE INJ 10MG/2ML VIAL (J2765) IV PRN (16:30)
[2019-08-24] MEDS ORDERED: fentaNYL 100 MCG/2 ML INJECTION (J3010) IV PRN (16:30)
[2019-08-24] MEDS ORDERED: ONDANSETRON 4MG/2ML VIAL (J2405) IV PRN ×2 (16:30→16:45)
[2019-08-24] MEDS ORDERED: PERCOCET 5MG/325MG TAB PO PRN (16:30)
[2019-08-24] MEDS ORDERED: LR 1,000 ML IV SCH (16:30)
[2019-08-24] MEDS ORDERED: ACETAMINOPHEN TAB 650MG DOSE (2X325MG) PO PRN (16:45)
[2019-08-24] MEDS ORDERED: MORPHINE 4 MG/ML 1ML VIAL/SYRINGE (J2270) IV PRN (16:45)
[2019-08-24] MEDS: LR 1,000 ML IV SCH (17:32)
[2019-08-24] MEDS ORDERED: ERTAPENEM SODIUM 1 GM in NS MINI-BAG PLUS 50 ML IV SCH (18:00)
[2019-08-24] MEDS: SENOKOT S TAB PO SCH (22:31)
[2019-08-25] VITALS (7 sets, daily range): BP systolic 117–137; BP diastolic 61–65; O2SAT 97
[2019-08-25] MEDS: LR 1,000 ML IV SCH (00:56)
[2019-08-25 06:49] LABS: HEMATOCRIT 40.1 % (42.0-52.0); HEMOGLOBIN 13.4 g/dl (13.5-17.5); MEAN CORPUSCULAR HGB CONC 33.4 g/dl (32.0-36.5); MEAN CORPUSCULAR VOLUME 89.7 fl (80.0-96.0); PLATELET COUNT, AUTOMATED 224 10^3/uL (150-450); RED BLOOD COUNT 4.47 10^6/uL (4.30-6.10)
[2019-08-25 07:15] LABS: BLOOD UREA NITROGEN 8 MG/DL (7-18); CARBON DIOXIDE LEVEL 29 MEQ/L (21-32); CHLORIDE LEVEL 107 MEQ/L (98-107); CREATININE FOR GFR 0.87 MG/DL (0.70-1.30); GLOMERULAR FILTRATION RATE > 60.0 (>56); GLUCOSE, FASTING 117 MG/DL (70-100); POTASSIUM SERUM 3.9 MEQ/L (3.5-5.1); SODIUM LEVEL 142 MEQ/L (136-145)
[2019-08-25] MEDS: ENOXAPARIN 40 MG/0.4 ML SYRINGE (J1650) SC SCH (08:31)
[2019-08-25] MEDS: PANTOPRAZOLE 40MG TAB (PROTONIX) PO SCH (08:31)
[2019-08-25] MEDS: SENOKOT S TAB PO SCH ×2 (08:31→21:56)
--- NOTE | 2019-08-25 09:11 | RO ---
DATE OF PROCEDURE: 08/24/2019 PREOPERATIVE DIAGNOSIS: Sigmoid volvulus. POSTOPERATIVE DIAGNOSIS: Sigmoid volvulus. PROCEDURE: Robotic sigmoidectomy. SURGEON: Dr. Cope INPATIENT NURSING AIDE: Demi Enriquez NP ANESTHESIA: General. ESTIMATED BLOOD LOSS: 10. COMPLICATIONS: None. INDICATION FOR PROCEDURE: The patient 59-year-old male who presents with a history of sigmoid volvulus, as well as ulcerative colitis. Recommendation was to proceed with sigmoid resection. Risks and benefits procedure, not limited but including bleeding, infection, hernia formation, damage to surrounding structures, anastomotic leak, and the possibility for the need for further surgery. He understood and signed consent. DESCRIPTION OF PROCEDURE: The patient brought to operating room 7. After sufficient sedation and anesthetic, the abdomen was sterilely prepped and draped. Next time-out was done to confirm proper patient and proper procedure. Following that, an 8 mm incision was made in the left upper quadrant, Veress needle was inserted, and the abdomen was insufflated to 15 mmHg. Next, Veress needle was removed. 8 mm port was used to gain access to the abdomen. Once the abdomen was entered, two more 8 mm ports were placed in a vertical line from the left upper quadrant to the right lower quadrant and the fourth port was a 12 mm port. Once all these ports were placed, the robot was docked. The sigmoid was extremely distended and redundant. It started distally at the rectum and dissected laterally and then medially at the rectosigmoid junction and then dissected through the mesocolon until I was circumferential all around the rectosigmoid junction. Once that was completed, the robotic 45 mm stapler with blue load was used to the staple off the proximal rectum. Once that was completed, the Enseal that was used to dissect through the mesocolon proximally. Multiple loops of redundant sigmoid were dissected free. I was able to take the descending colon and extend it all the way down into the rectum without any tension. Once I pinpointed a location where it was possible to make a good tension-free anastomosis, I marked it with a clip. I then dissected the rest of the mesocolon up to that point. Once that was completed, I made a small 5 cm incision just inferior to the umbilicus and midline, brought out the colon through that incision, localized the spot where my clip was placed, made a small colotomy there, placed a 28 mm anvil inside of the colon and then stapled across with a STALIN 100 blue load stapler and brought this anvil out through that location. Once that was completed, I took a 2-0 Prolene suture and pursestring around the end of the colon to make sure the staple line remained intact. I placed the anvil and the colon back inside the abdomen. The fascial defect was closed with a running PDS suture. The abdomen was then reinsufflated and a 19-[place] Padilla drain was placed inside the abdomen. Next, the EEA stapler was brought in through the rectum. The anvil was connected and fired creating an anastomosis. There were two good doughnut shaped tissues that were well intact. The 19-[place] Padilla drain was then placed down into the pelvis, brought out through the right-sided 12 mm port site, sutured in place with 2-0 silk suture. The pelvis was then filled with saline. Air was insufflated through the rectum. There were no signs of any air bubbles or leaks. The bulb of saline was then removed. The abdomen was desufflated. Skin incisions were closed with dena. The abdomen was cleaned and dry, 4x4 and tape were applied. thus ending procedure.
--- NOTE | 2019-08-25 12:32 | IPNPDOC ---
Text Note Date of Service The patient was seen on 08/25/19. NOTE No acute events overnight. Tolerating diet. Denies problems with nausea, emesis, or fevers. He is ambulating without any problems. VSSAF NAD abd - soft, nt, nd, incisions c/d/i, drain serous labs - below A) 59y/o male s/p RA sigmoidectomy P) flq diet ambulate d/c IVF abx one more dose monitor labs await return of bowel function Greg Cope DO VS,Sherrie, I+O VS, Keve, I+O Laboratory Tests 08/25/19 06:16 Vital Signs Date Time Temp Pulse Resp B/P (MAP) Pulse Ox O2 Delivery O2 Flow Rate FiO2 08/25/19 09:03 97 Room Air 08/25/19 06:00 98.2 74 18 119/61 (80) 2.0 I&O- Last 24 Hours up to 6 AM 08/25/19 06:00 Intake Total 3905 ml Output Total 1710 ml Balance 2195 ml EMILIANO COPE DO Aug 25, 2019 12:09
[2019-08-25] MEDS ORDERED: ERTAPENEM SODIUM 1 GM in NS MINI-BAG PLUS 50 ML IV SCH (13:00)
[2019-08-25] MEDS: NORCO, ANEXSIA 5/325MG TABLET (HYDROcodone/ACETAMINOPHEN) PO PRN ×2 (15:26→21:56)
[2019-08-26] VITALS: BP 113/69
[2019-08-26 07:02] LABS: HEMATOCRIT 39.6 % (42.0-52.0); HEMOGLOBIN 13.2 g/dl (13.5-17.5); MEAN CORPUSCULAR HEMOGLOBIN 30.7 pg (27.0-33.0); MEAN CORPUSCULAR HGB CONC 33.3 g/dl (32.0-36.5); MEAN CORPUSCULAR VOLUME 92.1 fl (80.0-96.0); PLATELET COUNT, AUTOMATED 186 10^3/uL (150-450); WHITE BLOOD COUNT 14.4 10^3/uL (4.0-10.0)
[2019-08-26 07:27] LABS: BLOOD UREA NITROGEN 7 MG/DL (7-18); CALCIUM LEVEL 8.5 MG/DL (8.5-10.1); CARBON DIOXIDE LEVEL 30 MEQ/L (21-32); CHLORIDE LEVEL 106 MEQ/L (98-107); CREATININE FOR GFR 0.93 MG/DL (0.70-1.30); GLOMERULAR FILTRATION RATE > 60.0 (>56); GLUCOSE, FASTING 134 MG/DL (70-100); POTASSIUM SERUM 4.4 MEQ/L (3.5-5.1); SODIUM LEVEL 140 MEQ/L (136-145)
[2019-08-26 08:00] VITALS: BP 124/67
[2019-08-26] MEDS: NORCO, ANEXSIA 5/325MG TABLET (HYDROcodone/ACETAMINOPHEN) PO PRN ×2 (08:16→16:35)
[2019-08-26] MEDS: SENOKOT S TAB PO SCH ×2 (08:17→21:58)
[2019-08-26] MEDS: PANTOPRAZOLE 40MG TAB (PROTONIX) PO SCH (08:17)
[2019-08-26] MEDS: ENOXAPARIN 40 MG/0.4 ML SYRINGE (J1650) SC SCH (08:17)
[2019-08-26 12:00] VITALS: BP 119/72
[2019-08-26 16:00] VITALS: BP 113/64
[2019-08-26] MEDS: KETOROLAC 30 MG/ML VIAL (J1885) IV PRN (17:41)
--- NOTE | 2019-08-26 22:13 | IPNPDOC ---
Text Note Date of Service The patient was seen on 08/26/19. NOTE No acute events overnight. Tolerating diet. Denies problems with nausea, emesis, or pain. He is ambulating without any problems. He did have a little fever overnight. VSSAF NAD abd - soft, nt, nd, incisions c/d/i, drain serous labs - below A) 59y/o male s/p RA sigmoidectomy P) flq diet ambulate monitor labs await return of bowel function IS will check chest xray in am if he still has increased wbcs Greg Cope DO VS,Fishbone, I+O VS, Fishbone, I+O Laboratory Tests 08/26/19 06:47 Vital Signs Date Time Temp Pulse Resp B/P (MAP) Pulse Ox O2 Delivery O2 Flow Rate FiO2 08/26/19 17:41 18 08/26/19 16:00 99.2 77 113/64 (80) 94 Room Air 08/25/19 06:00 2.0 I&O- Last 24 Hours up to 6 AM 08/26/19 06:00 Intake Total 2415 ml Output Total 2770 ml Balance -355 ml EMILIANO COPE DO Aug 26, 2019 22:13
[2019-08-26 23:43] VITALS: BP 127/70
[2019-08-27] MEDS: KETOROLAC 30 MG/ML VIAL (J1885) IV PRN ×2 (06:25→14:40)
[2019-08-27 06:49] LABS: HEMATOCRIT 38.9 % (42.0-52.0); HEMOGLOBIN 12.8 g/dl (13.5-17.5); MEAN CORPUSCULAR HEMOGLOBIN 29.7 pg (27.0-33.0); MEAN CORPUSCULAR HGB CONC 32.9 g/dl (32.0-36.5); MEAN CORPUSCULAR VOLUME 90.3 fl (80.0-96.0); PLATELET COUNT, AUTOMATED 167 10^3/uL (150-450); RED BLOOD COUNT 4.31 10^6/uL (4.30-6.10); WHITE BLOOD COUNT 9.2 10^3/uL (4.0-10.0)
[2019-08-27 07:07] LABS: BLOOD UREA NITROGEN 9 MG/DL (7-18); CALCIUM LEVEL 8.3 MG/DL (8.5-10.1); CARBON DIOXIDE LEVEL 28 MEQ/L (21-32); CHLORIDE LEVEL 107 MEQ/L (98-107); CREATININE FOR GFR 0.94 MG/DL (0.70-1.30); GLOMERULAR FILTRATION RATE > 60.0 (>56); GLUCOSE, FASTING 135 MG/DL (70-100); POTASSIUM SERUM 3.5 MEQ/L (3.5-5.1); SODIUM LEVEL 141 MEQ/L (136-145)
[2019-08-27 08:00] VITALS: BP 120/72
[2019-08-27] MEDS: ENOXAPARIN 40 MG/0.4 ML SYRINGE (J1650) SC SCH (08:04)
[2019-08-27] MEDS: PANTOPRAZOLE 40MG TAB (PROTONIX) PO SCH (08:04)
[2019-08-27] MEDS: SENOKOT S TAB PO SCH ×2 (08:04→21:00)
[2019-08-27] MEDS ORDERED: FLUBLOK(EGG FREE)(QUAD)INFLUENZA VACC 0.5ML SYRINGE (90682)18YRS&OLDER IM ONE (09:00)
[2019-08-27 16:00] VITALS: BP 128/78
[2019-08-28] VITALS: BP 138/82
[2019-08-28] MEDS: KETOROLAC 30 MG/ML VIAL (J1885) IV PRN ×2 (00:28→06:22)
[2019-08-28 07:15] LABS: HEMATOCRIT 40.1 % (42.0-52.0); HEMOGLOBIN 13.6 g/dl (13.5-17.5); MEAN CORPUSCULAR HEMOGLOBIN 30.4 pg (27.0-33.0); MEAN CORPUSCULAR HGB CONC 33.9 g/dl (32.0-36.5); MEAN CORPUSCULAR VOLUME 89.5 fl (80.0-96.0); PLATELET COUNT, AUTOMATED 208 10^3/uL (150-450); RED BLOOD COUNT 4.48 10^6/uL (4.30-6.10); WHITE BLOOD COUNT 9.8 10^3/uL (4.0-10.0)
[2019-08-28 07:38] LABS: BLOOD UREA NITROGEN 16 MG/DL (7-18); CALCIUM LEVEL 8.7 MG/DL (8.5-10.1); CARBON DIOXIDE LEVEL 27 MEQ/L (21-32); CHLORIDE LEVEL 107 MEQ/L (98-107); CREATININE FOR GFR 0.92 MG/DL (0.70-1.30); GLOMERULAR FILTRATION RATE > 60.0 (>56); GLUCOSE, FASTING 127 MG/DL (70-100); SODIUM LEVEL 140 MEQ/L (136-145)
[2019-08-28 08:00] VITALS: BP 131/81
[2019-08-28] MEDS ORDERED: FLUBLOK(EGG FREE)(QUAD)INFLUENZA VACC 0.5ML SYRINGE (90682)18YRS&OLDER IM ONE (09:00)
[2019-08-28] MEDS: POTASSIUM CHLORIDE 10 MEQ SR TABLET PO SCH ×2 (09:10→21:12)
[2019-08-28] MEDS: PANTOPRAZOLE 40MG TAB (PROTONIX) PO SCH (09:10)
[2019-08-28] MEDS: SENOKOT S TAB PO SCH ×2 (09:10→21:13)
[2019-08-28] MEDS: ENOXAPARIN 40 MG/0.4 ML SYRINGE (J1650) SC SCH (09:11)
[2019-08-28] MEDS: SIMETHICONE 80 MG CHEW TAB PO SCH ×4 (09:24→21:13)
[2019-08-28] MEDS: DICYCLOMINE 10 MG CAP PO SCH ×3 (09:24→21:13)
--- NOTE | 2019-08-28 09:39 | IPNPDOC ---
Text Note Date of Service The patient was seen on 08/27/19. NOTE No acute events overnight. Tolerating diet. Denies problems with nausea, emesis, or pain. He is ambulating without any problems. No more fevers, and he did have a small BM. Only complaint is that he is a little distended. VSSAF NAD abd - soft, nt, distended, incisions c/d/i, drain serous labs - below A) 59y/o male s/p RA sigmoidectomy P) reg diet ambulate monitor labs IS plan on d/c home in am if he is less distended Greg Cope DO VS,Fishbone, I+O VS, Fishbone, I+O Laboratory Tests 08/28/19 07:03 Vital Signs Date Time Temp Pulse Resp B/P (MAP) Pulse Ox O2 Delivery O2 Flow Rate FiO2 08/28/19 08:00 98.0 77 18 131/81 (98) 95 Room Air 08/25/19 06:00 2.0 I&O- Last 24 Hours up to 6 AM 08/28/19 06:00 Intake Total 1360 ml Output Total 865 ml Balance 495 ml EMILIANO COPE DO Aug 28, 2019 09:39
--- NOTE | 2019-08-28 09:40 | IPNPDOC ---
Text Note Date of Service The patient was seen on 08/28/19. NOTE No acute events overnight. Tolerating diet. Denies problems with nausea, emesis, or pain. He is ambulating without any problems. He is still very distended, but he did have a few more larger BMs. VSSAF NAD abd - soft, nt, more distended, incisions c/d/i, drain serous labs - below A) 59y/o male s/p RA sigmoidectomy P) reg diet ambulate monitor labs IS plan on d/c home in am if he is less distended bentyl simethicone replace K Greg Cope DO VS,Fishbone, I+O VS, Fishbone, I+O Laboratory Tests 08/28/19 07:03 Vital Signs Date Time Temp Pulse Resp B/P (MAP) Pulse Ox O2 Delivery O2 Flow Rate FiO2 08/28/19 08:00 98.0 77 18 131/81 (98) 95 Room Air 08/25/19 06:00 2.0 I&O- Last 24 Hours up to 6 AM 08/28/19 06:00 Intake Total 1360 ml Output Total 865 ml Balance 495 ml EMILIANO COPE DO Aug 28, 2019 09:40
[2019-08-28 12:00] VITALS: BP 116/77
[2019-08-28 16:30] VITALS: BP 122/80
[2019-08-28 20:00] VITALS: BP 119/73
[2019-08-29] VITALS: BP 114/68
[2019-08-29 07:18] LABS: HEMATOCRIT 39.3 % (42.0-52.0); HEMOGLOBIN 13.4 g/dl (13.5-17.5); MEAN CORPUSCULAR HGB CONC 34.1 g/dl (32.0-36.5); MEAN CORPUSCULAR VOLUME 87.9 fl (80.0-96.0); PLATELET COUNT, AUTOMATED 242 10^3/uL (150-450); RED BLOOD COUNT 4.47 10^6/uL (4.30-6.10); WHITE BLOOD COUNT 8.7 10^3/uL (4.0-10.0)
[2019-08-29 07:46] LABS: BLOOD UREA NITROGEN 16 MG/DL (7-18); CALCIUM LEVEL 8.6 MG/DL (8.5-10.1); CARBON DIOXIDE LEVEL 24 MEQ/L (21-32); CHLORIDE LEVEL 111 MEQ/L (98-107); CREATININE FOR GFR 0.87 MG/DL (0.70-1.30); GLOMERULAR FILTRATION RATE > 60.0 (>56); GLUCOSE, FASTING 112 MG/DL (70-100); POTASSIUM SERUM 3.3 MEQ/L (3.5-5.1); SODIUM LEVEL 141 MEQ/L (136-145)
[2019-08-29] MEDS: PANTOPRAZOLE 40MG TAB (PROTONIX) PO SCH (08:39)
[2019-08-29] MEDS: DICYCLOMINE 10 MG CAP PO SCH (08:39)
[2019-08-29] MEDS: SIMETHICONE 80 MG CHEW TAB PO SCH (08:39)
[2019-08-29] MEDS: SENOKOT S TAB PO SCH (08:39)
[2019-08-29] MEDS: POTASSIUM CHLORIDE 10 MEQ SR TABLET PO SCH (08:40)
[2019-08-29] MEDS: ENOXAPARIN 40 MG/0.4 ML SYRINGE (J1650) SC SCH (08:40)
[2019-08-29 08:47] VITALS: BP 128/81
--- NOTE | 2019-08-30 20:22 | DSES ---
DATE OF ADMISSION: 08/24/2019 DATE OF DISCHARGE: 08/29/2019 ADMISSION DIAGNOSIS: Sigmoid volvulus. DISCHARGE DIAGNOSIS: Sigmoid volvulus. HOSPITAL COURSE: The patient is a 59-year-old male who has a history of sigmoid volvulus causing intermittent obstructions. He was brought to the operating room for robotic sigmoidectomy. Postoperatively he did well, pain was well-controlled. He was ambulating and urinating without any problems. Labs were completely stable throughout his admission. He did have a slight ileus postoperative day #3 that prolonged his stay. No nausea or vomiting but he was very distended. He continued to pass small amounts of gas, but by postoperative day #4 he was having some small bowel movements and postoperative day #5 he passed a large amount of gas and multiple large, soft bowel movements and his abdomen became nondistended. Plan is to discharge him home today, send him home with pain control. No other medications. He can shower. No baths for a couple more days. He will followup with me in the office in 2 weeks. All of his questions are answered.
== END 2019-08-29 11:20 | disposition home or self-care (01) | DRG 390 ==
LOC: M OR 09:07 → M PED 17:05
PROVIDERS: ADMIT Surgery; ATTEND Surgery
PROC: 8E0W4CZ Robotic Assisted Procedure of Trunk Region, Percutaneous Endoscopic Approach (ICD-10-PCS; 2019-08-24)
PROC: 0DBN4ZX Excision of Sigmoid Colon, Percutaneous Endoscopic Approach, Diagnostic (ICD-10-PCS; principal; 2019-08-24 10:45)
DX: K56.2 Volvulus (principal)

== ENCOUNTER 2019-10-09 17:35 | Emergency (ER) | payer OTHER ==
[~2019-10-09] VITALS: Ht 175.3 cm; Wt 76.9 kg
[~2019-10-09 17:35] MED LIST changes: -ERTAPENEM SODIUM 1 GM in NS MINI-BAG PLUS 50 ML IV ONE; -LR 1,000 ML IV ONE
[2019-10-09] MEDS ORDERED: IBUPROFEN 600 MG TAB PO ONE (18:00)
[2019-10-09 18:24] VITALS: BP 143/87
--- NOTE | 2019-10-09 18:31 | REP ---
RIGHT WRIST COMPLETE: 10/09/2019. Clinical history: Trauma, fell on outstretched hand. Findings: There is some soft tissue swelling about the dorsal aspect of the distal forearm and wrist on the lateral view. Distal radius and ulna without fracture or avulsion. Carpal bones and their joint spaces are preserved without fracture, avulsion, subluxation or focal lesion. Metacarpals, CMC joints and MCP joints are without acute finding. There is minimal degenerative change at the first MCP joint. Impression: 1. Soft tissue swelling dorsal aspect of the distal forearm and wrist without visible or displaced fracture, avulsion or other acute bony finding. Electronically Signed by Valerio Brunson MD 10/09/2019 08:03 P
== END 2019-10-09 18:49 | disposition home or self-care (01) ==
LOC: M ED 17:35
DX: S63.501A Unspecified sprain of right wrist, initial encounter (principal); W00.0XXA Fall on same level due to ice and snow, initial encounter; Y92.9 Unspecified place or not applicable; Y93.01 Activity, walking, marching and hiking

== ENCOUNTER → 2020-07-16 | Outpatient (CLI) | payer OTHER ==
[~2020-07-16] MED LIST changes: +CYCL-707 PO; -CYCL10TA PO; +ONDA-83 PO; -ONDA4TAB5 PO
== END ==
LOC: M LABSMTC 11:11
PROVIDERS: ATTEND Anesthesiology
DX: Z01.818 Encounter for other preprocedural examination (principal); Z11.59 Encounter for screening for other viral diseases; Z20.828 Contact with and (suspected) exposure to other viral communicable diseases
CPT/HCPCS: C9803; U0002

== ENCOUNTER 2020-07-20 08:54 | Day surgery (SDC) | payer OTHER ==
[~2020-07-20] VITALS: Ht 175.3 cm; Wt 57.2 kg
[~2020-07-20 08:54] MED LIST changes: +NS 1,000 ML IV ONE
[2020-07-20] MEDS ORDERED: propofoL 200 MG/20 ML VIAL As Ordered ONE ×3 (09:51→10:08)
--- NOTE | 2020-07-20 10:21 | ROOR ---
Patient Name: Jim Hernandez Procedure Date: 07/20/2020 9:51 AM Date of : 1960 Age: 60 Room: [facility] Gender: Male Note Status: Finalized Procedure: Colonoscopy Indications: High risk colon cancer surveillance: Personal history of colonic polyps Providers: DO Jc Bartlett MD: Dawit Washington MD Requesting Provider: Medicines: Propofol per Anesthesia Complications: No immediate complications. Procedure: Pre-Anesthesia Assessment: - Prior to the procedure, a History and Physical was performed, and patient medications and allergies were reviewed. The patient is competent. The risks and benefits of the procedure and the sedation options and risks were discussed with the patient. All questions were answered and informed consent was obtained. Patient identification and proposed procedure were verified by the physician, the nurse, the senior quality control inspector and the bio medical technician in the endoscopy suite. Mental Status Examination: alert and oriented. Airway Examination: normal oropharyngeal airway and neck mobility. Respiratory Examination: clear to auscultation. CV Examination: normal. Prophylactic Antibiotics: The patient does not require prophylactic antibiotics. Prior Anticoagulants: The patient has taken no previous anticoagulant or antiplatelet agents. ASA Grade Assessment: II - A patient with mild systemic disease. After reviewing the risks and benefits, the patient was deemed in satisfactory condition to undergo the procedure. The anesthesia plan was to use monitored anesthesia care (MAC). Immediately prior to administration of medications, the patient was re-assessed for adequacy to receive sedatives. The heart rate, respiratory rate, oxygen saturations, blood pressure, adequacy of pulmonary ventilation, and response to care were monitored throughout the procedure. The physical status of the patient was re-assessed after the procedure. The Colonoscope was introduced through the anus and advanced to the cecum, identified by appendiceal orifice and ileocecal valve. The colonoscopy was performed without difficulty. The patient tolerated the procedure well. Findings: Internal hemorrhoids were found during retroflexion. The hemorrhoids were small. The exam was otherwise without abnormality on direct and retroflexion views. Impression: - Internal hemorrhoids. - The examination was otherwise normal on direct and retroflexion views. - No specimens collected. Recommendation: - Patient has a contact number available for emergencies. The signs and symptoms of potential delayed complications were discussed with the patient. Return to normal activities tomorrow. Written discharge instructions were provided to the patient. - Repeat colonoscopy in 5-10 years for screening purposes. - Return to my office PRN. Soto Cope DO 07/20/2020 10:20:53 AM Electronically signed by Soto Cope DO Number of Addenda: 0 Note Initiated On: 07/20/2020 9:51 AM Estimated Blood Loss: Estimated blood loss: none.
[2020-07-20 10:40] VITALS: BP 112/71
== END 2020-07-20 10:55 | disposition home or self-care (01) ==
LOC: M OPP 08:54
PROVIDERS: ATTEND Surgery
DX: Z12.11 Encounter for screening for malignant neoplasm of colon (principal); Z86.010 Personal history of colon polyps; K64.8 Other hemorrhoids; K51.90 Ulcerative colitis, unspecified, without complications; Z90.49 Acquired absence of other specified parts of digestive tract; Z79.899 Other long term (current) drug therapy

== ENCOUNTER 2021-12-06 11:12 | Observation (INO) | payer OTHER ==
[~2021-12-06] VITALS: Ht 175.3 cm; Wt 80.4 kg
[2021-12-06] MEDS: ENOXAPARIN 100MG/1ML SYRINGE (J1650 PER 10MG) SC SCH ×2 (09:00→21:04)
[~2021-12-06 11:12] MED LIST changes: -ELIQ5TAB PO
[2021-12-06 11:52] LABS: BASO # 0.1 10^3/uL (0.0-0.2); BASO % 0.5 % (0.0-1.0); EOS # 0.5 10^3/uL (0.0-0.5); EOS % 4.2 % (0.0-3.0); HEMATOCRIT 42.4 % (42.0-52.0); HEMOGLOBIN 13.8 g/dl (13.5-17.5); LYMPH # 1.4 10^3/uL (1.5-5.0); LYMPH % 12.4 % (24.0-44.0); MEAN CORPUSCULAR HGB CONC 32.5 g/dl (32.0-36.5); MEAN CORPUSCULAR VOLUME 89.1 fl (80.0-96.0); MONO # 1.1 10^3/uL (0.0-0.8); MONO % 9.2 % (2.0-8.0); NEUTROPHILS # 8.5 10^3/uL (1.5-8.5); NEUTROPHILS % 73.4 % (36.0-66.0); PLATELET COUNT, AUTOMATED 267 10^3/uL (150-450); RED BLOOD COUNT 4.76 10^6/uL (4.30-6.10); WHITE BLOOD COUNT 11.6 10^3/uL (4.0-10.0)
[2021-12-06 12:09] LABS: INR 1.04
[2021-12-06 12:11] LABS: D-DIMER QUANT 1430.96 ng/ml (<500)
[2021-12-06] MEDS ORDERED: ISOVUE-370 76% 100ML VIAL As Ordered ONE (12:16)
[2021-12-06 12:24] LABS: ALBUMIN 3.8 GM/DL (3.2-5.2); BILIRUBIN,DIRECT 0.3 MG/DL (0.0-0.2); BILIRUBIN,TOTAL 0.8 MG/DL (0.2-1.0); TOTAL PROTEIN 6.8 GM/DL (6.4-8.2)
[2021-12-06 13:28] LABS: CK-MB VALUE MASS < 1.0 NG/ML (<3.6); CPK CREATINE PHOSPHOKINASE 48 U/L (39-308); MB/CK RELATIVE INDEX 2.08 (< OR =4)
[2021-12-06 13:29] LABS: RSV AMPLIFICATION NEGATIVE (NEGATIVE)
[2021-12-06] MEDS ORDERED: HOME MED LIST COMPLETE! XX SCH (14:00)
[2021-12-06] MEDS ORDERED: ACETAMINOPHEN TAB 650MG DOSE (2X325MG) PO PRN (14:20)
[2021-12-06 19:15] VITALS: BP 123/64
[2021-12-07 01:05] VITALS: O2SAT 92
[2021-12-07 05:43] VITALS: BP 107/65
[2021-12-07 06:41] LABS: HEMATOCRIT 38.8 % (42.0-52.0); MEAN CORPUSCULAR HEMOGLOBIN 29.7 pg (27.0-33.0); MEAN CORPUSCULAR HGB CONC 33.5 g/dl (32.0-36.5); MEAN CORPUSCULAR VOLUME 88.8 fl (80.0-96.0); PLATELET COUNT, AUTOMATED 255 10^3/uL (150-450); RED BLOOD COUNT 4.37 10^6/uL (4.30-6.10); WHITE BLOOD COUNT 9.5 10^3/uL (4.0-10.0)
[2021-12-07 07:08] LABS: BLOOD UREA NITROGEN 17 MG/DL (7-18); CALCIUM LEVEL 8.4 MG/DL (8.8-10.2); CARBON DIOXIDE LEVEL 27 MEQ/L (21-32); CHLORIDE LEVEL 108 MEQ/L (98-107); CREATININE FOR GFR 0.86 MG/DL (0.70-1.30); GLOMERULAR FILTRATION RATE > 60.0 (>49); GLUCOSE, FASTING 120 MG/DL (70-100); POTASSIUM SERUM 4.1 MEQ/L (3.5-5.1); SODIUM LEVEL 139 MEQ/L (136-145)
[2021-12-07] MEDS: ENOXAPARIN 100MG/1ML SYRINGE (J1650 PER 10MG) SC SCH (08:55)
[2021-12-07] MEDS ORDERED: ELIQ5TAB PO (08:56)
[2021-12-07 09:00] VITALS: O2SAT 95
[2021-12-07 17:49] LABS: MAGNESIUM LEVEL 2.1 MG/DL (1.7-2.2)
== END 2021-12-07 11:00 | disposition home or self-care (01) ==
LOC: M ED 11:12 → M ED INP 11:13 → ENRESERV 18:42 → M MSPAV 19:15
PROVIDERS: ADMIT Family Medicine; ATTEND Family Medicine
DX: I26.99 Other pulmonary embolism without acute cor pulmonale (principal); I82.401 Acute embolism and thrombosis of unspecified deep veins of right lower extremity; K51.90 Ulcerative colitis, unspecified, without complications; R07.9 Chest pain, unspecified; Z86.718 Personal history of other venous thrombosis and embolism; Z86.711 Personal history of pulmonary embolism; Z79.01 Long term (current) use of anticoagulants; Z79.1 Long term (current) use of non-steroidal anti-inflammatories (NSAID)
CPT/HCPCS: 36415; 71045; 71275; 80047; 80048; 80076; 82550; 82553; 83735; 84484; 85025; 85027; 85379; 85610; 85730; 87631; 93005; 93041; 94760; 96372; 99285; J1650; Q9967

== ENCOUNTER → 2021-12-06 | Outpatient (CLI) | payer OTHER ==
[~2021-12-06] MED LIST changes: +ELIQ5TAB PO; -NS 1,000 ML IV ONE
== END ==
LOC: M RAD 10:06
PROVIDERS: ATTEND Physician Assistant
DX: I82.411 Acute embolism and thrombosis of right femoral vein (principal)

== ENCOUNTER → 2021-12-06 | Outpatient (CLI) | payer OTHER ==
[2021-12-06 11:57] LABS: BASO # 0.1 10^3/uL (0.0-0.2); BASO % 0.7 % (0.0-1.0); EOS # 0.5 10^3/uL (0.0-0.5); EOS % 4.8 % (0.0-3.0); HEMATOCRIT 43.2 % (42.0-52.0); HEMOGLOBIN 14.1 g/dl (13.5-17.5); LYMPH # 1.3 10^3/uL (1.5-5.0); LYMPH % 11.9 % (24.0-44.0); MEAN CORPUSCULAR HEMOGLOBIN 29.4 pg (27.0-33.0); MEAN CORPUSCULAR HGB CONC 32.6 g/dl (32.0-36.5); MONO # 1.1 10^3/uL (0.0-0.8); MONO % 9.9 % (2.0-8.0); NEUTROPHILS # 8.2 10^3/uL (1.5-8.5); NEUTROPHILS % 72.3 % (36.0-66.0); PLATELET COUNT, AUTOMATED 285 10^3/uL (150-450); WHITE BLOOD COUNT 11.3 10^3/uL (4.0-10.0)
[2021-12-06 12:25] LABS: ALBUMIN 3.8 GM/DL (3.2-5.2); ALT/SGPT 36 U/L (12-78); BILIRUBIN,TOTAL 0.8 MG/DL (0.2-1.0); BLOOD UREA NITROGEN 18 MG/DL (7-18); CALCIUM LEVEL 8.6 MG/DL (8.8-10.2); CARBON DIOXIDE LEVEL 31 MEQ/L (21-32); CHLORIDE LEVEL 106 MEQ/L (98-107); CREATININE FOR GFR 0.98 MG/DL (0.70-1.30); GLOMERULAR FILTRATION RATE > 60.0 (>49); GLUCOSE, FASTING 107 MG/DL (70-100); POTASSIUM SERUM 4.3 MEQ/L (3.5-5.1); SODIUM LEVEL 138 MEQ/L (136-145)
== END ==
LOC: M WUC 09:35
PROVIDERS: ATTEND Physician Assistant
DX: R06.02 Shortness of breath (principal)

== ENCOUNTER → 2022-06-27 | Outpatient (CLI) | payer OTHER ==
[~2022-06-27] MED LIST changes: +ELIQ5TAB PO
[2022-06-27 14:02] LABS: BASO # 0.1 10^3/uL (0.0-0.2); EOS # 0.4 10^3/uL (0.0-0.5); HEMATOCRIT 45.8 % (42.0-52.0); LYMPH # 1.6 10^3/uL (1.5-5.0); LYMPH % 22.1 % (24.0-44.0); MEAN CORPUSCULAR HEMOGLOBIN 29.9 pg (27.0-33.0); MEAN CORPUSCULAR HGB CONC 32.8 g/dl (32.0-36.5); MEAN CORPUSCULAR VOLUME 91.4 fl (80.0-96.0); MONO # 0.6 10^3/uL (0.0-0.8); MONO % 8.7 % (2.0-8.0); NEUTROPHILS # 4.4 10^3/uL (1.5-8.5); NEUTROPHILS % 62.9 % (36.0-66.0); PLATELET COUNT, AUTOMATED 254 10^3/uL (150-450); RED BLOOD COUNT 5.01 10^6/uL (4.30-6.10); WHITE BLOOD COUNT 7.1 10^3/uL (4.0-10.0)
[2022-06-27 14:11] LABS: ALBUMIN 4.1 GM/DL (3.2-5.2); ALT/SGPT 28 U/L (12-78); BILIRUBIN,TOTAL 1.2 MG/DL (0.2-1.0); BLOOD UREA NITROGEN 14 MG/DL (7-18); CALCIUM LEVEL 9.4 MG/DL (8.8-10.2); CARBON DIOXIDE LEVEL 28 MEQ/L (21-32); CHLORIDE LEVEL 103 MEQ/L (98-107); CHOLESTEROL LEVEL 196 MG/DL (<200); CREATININE FOR GFR 0.98 MG/DL (0.70-1.30); GLOMERULAR FILTRATION RATE > 60.0 (>49); GLUCOSE, FASTING 99 MG/DL (70-100); HDL CHOLESTEROL 69 MG/DL (>40); LDL CHOLESTEROL 105 MG/DL (<100); NON-HDL-C 127 MG/DL; POTASSIUM SERUM 4.8 MEQ/L (3.5-5.1); PROSTATIC SPECIFIC AG MONITOR 0.91 NG/ML (< 4.00); SODIUM LEVEL 137 MEQ/L (136-145); TOTAL PROTEIN 7.2 GM/DL (6.4-8.2); TRIGLYCERIDES LEVEL 110 MG/DL (<150)
== END ==
LOC: M PLALAB 09:42
PROVIDERS: ATTEND Family Medicine
DX: Z00.00 Encounter for general adult medical examination without abnormal findings (principal); Z12.5 Encounter for screening for malignant neoplasm of prostate

== ENCOUNTER → 2023-06-27 | Outpatient (CLI) | payer OTHER ==
[2023-06-27 11:34] LABS: BASO # 0.1 10^3/uL (0.0-0.2); BASO % 1.2 % (0.0-1.0); EOS # 0.4 10^3/uL (0.0-0.5); EOS % 6.3 % (0.0-3.0); HEMATOCRIT 43.7 % (42.0-52.0); HEMOGLOBIN 14.1 g/dl (13.5-17.5); LYMPH % 28.7 % (24.0-44.0); MEAN CORPUSCULAR HEMOGLOBIN 29.1 pg (27.0-33.0); MEAN CORPUSCULAR HGB CONC 32.3 g/dl (32.0-36.5); MEAN CORPUSCULAR VOLUME 90.3 fl (80.0-96.0); MONO # 0.7 10^3/uL (0.0-0.8); MONO % 10.2 % (2.0-8.0); NEUTROPHILS # 3.7 10^3/uL (1.5-8.5); NEUTROPHILS % 53.3 % (36.0-66.0); PLATELET COUNT, AUTOMATED 273 10^3/uL (150-450); RED BLOOD COUNT 4.84 10^6/uL (4.30-6.10); WHITE BLOOD COUNT 6.9 10^3/uL (4.0-10.0)
[2023-06-27 11:55] LABS: ALBUMIN 3.7 G/DL (3.2-5.2); ALKALINE PHOSPHATASE 75 U/L (46-116); ALT/SGPT 33 U/L (7.0-40); AST/SGOT 16 U/L (<34); BILIRUBIN,TOTAL 0.8 MG/DL (0.3-1.2); BLOOD UREA NITROGEN 21 MG/DL (9-23); CALCIUM LEVEL 8.8 MG/DL (8.3-10.6); CARBON DIOXIDE LEVEL 25 MMOL/L (20-31); CHLORIDE LEVEL 108 MMOL/L (98-107); CHOLESTEROL LEVEL 178 MG/DL (<200); CREATININE FOR GFR 0.94 MG/DL (0.70-1.30); GLOMERULAR FILTRATION RATE > 60.0 (>49); GLUCOSE, FASTING 108 MG/DL (74-106); HDL CHOLESTEROL 65.8 MG/DL (>40); LDL CHOLESTEROL 97.2 MG/DL (<100); NON-HDL-C 112.2 MG/DL; POTASSIUM SERUM 4.4 MMOL/L (3.5-5.1); PROSTATIC SPECIFIC AG MONITOR 0.66 NG/ML (< 4.00); SODIUM LEVEL 140 MMOL/L (136-145); TOTAL PROTEIN 6.6 G/DL (5.7-8.2); TRIGLYCERIDES LEVEL 75 MG/DL (<150)
== END ==
LOC: M WUC 09:29
PROVIDERS: ATTEND Family Medicine
DX: Z00.00 Encounter for general adult medical examination without abnormal findings (principal); Z12.5 Encounter for screening for malignant neoplasm of prostate

== ENCOUNTER 2023-10-21 11:06 | Day surgery (SDC) | payer OTHER ==
[~2023-10-21] VITALS: Ht 175.3 cm; Wt 79.5 kg
[~2023-10-21 11:06] MED LIST changes: +ELIQ2.5T PO; +NS 1,000 ML IV ONE
[2023-10-21] MEDS ORDERED: propofoL 200 MG/20 ML VIAL As Ordered ONE ×2 (12:43→12:55)
[2023-10-21 13:20] VITALS: TEMP 96.8
[2023-10-21 13:45] VITALS: BP 110/62; O2SAT 97
== END 2023-10-21 13:55 | disposition home or self-care (01) ==
LOC: M OPP 11:06
PROVIDERS: ATTEND Internal Medicine Gastroenterology
DX: D12.2 Benign neoplasm of ascending colon (principal); K51.40 Inflammatory polyps of colon without complications; K52.9 Noninfective gastroenteritis and colitis, unspecified; K51.50 Left sided colitis without complications; Q43.8 Other specified congenital malformations of intestine; Z98.0 Intestinal bypass and anastomosis status; K44.9 Diaphragmatic hernia without obstruction or gangrene; K22.70 Barrett's esophagus without dysplasia; K31.A19 Gastric intestinal metaplasia without dysplasia, unspecified site; Z79.01 Long term (current) use of anticoagulants; Z79.899 Other long term (current) drug therapy

== ENCOUNTER → 2024-07-04 | Outpatient (CLI) | payer OTHER ==
[~2024-07-04] MED LIST changes: -NS 1,000 ML IV ONE
[2024-07-04 12:28] LABS: BASO # 0.1 10^3/uL (0.0-0.2); BASO % 0.9 % (0.0-1.0); EOS # 0.2 10^3/uL (0.0-0.5); EOS % 1.9 % (0.0-3.0); HEMATOCRIT 43.9 % (42.0-52.0); HEMOGLOBIN 14.7 g/dl (13.5-17.5); LYMPH # 1.7 10^3/uL (1.5-5.0); MEAN CORPUSCULAR HGB CONC 33.5 g/dl (32.0-36.5); MEAN CORPUSCULAR VOLUME 89.6 fl (80.0-96.0); MONO # 0.7 10^3/uL (0.0-0.8); NEUTROPHILS # 7.1 10^3/uL (1.5-8.5); NEUTROPHILS % 72.9 % (36.0-66.0); PLATELET COUNT, AUTOMATED 265 10^3/uL (150-450); WHITE BLOOD COUNT 9.8 10^3/uL (4.0-10.0)
[2024-07-04 13:01] LABS: ALBUMIN 4.2 G/DL (3.2-5.2); ALKALINE PHOSPHATASE 75 U/L (46-116); ALT/SGPT 25 U/L (7.0-40); AST/SGOT 20 U/L (<34); BILIRUBIN,TOTAL 1.2 MG/DL (0.3-1.2); BLOOD UREA NITROGEN 22 MG/DL (9-23); CALCIUM LEVEL 8.9 MG/DL (8.3-10.6); CARBON DIOXIDE LEVEL 26 MMOL/L (20-31); CHLORIDE LEVEL 108 MMOL/L (98-107); CHOLESTEROL LEVEL 179 MG/DL (<200); CREATININE FOR GFR 1.04 MG/DL (0.70-1.30); GLOMERULAR FILTRATION RATE > 60.0 (>49); GLUCOSE, FASTING 82 MG/DL (74-106); HDL CHOLESTEROL 68.6 MG/DL (>40); LDL CHOLESTEROL 97.6 MG/DL (<100); NON-HDL-C 110.4 MG/DL; PROSTATIC SPECIFIC AG MONITOR 0.76 NG/ML (< 4.00); SODIUM LEVEL 140 MMOL/L (136-145); TOTAL PROTEIN 6.9 G/DL (5.7-8.2); TRIGLYCERIDES LEVEL 64 MG/DL (<150)
== END ==
LOC: M LAB 11:36
PROVIDERS: ATTEND Family Medicine
DX: Z00.00 Encounter for general adult medical examination without abnormal findings (principal); Z12.5 Encounter for screening for malignant neoplasm of prostate

== ENCOUNTER → 2025-08-06 | Outpatient (CLI) | payer OTHER ==
[2025-08-06 17:30] LABS: BASO # 0.1 10^3/uL (0.0-0.2); BASO % 0.9 % (0.0-1.0); EOS # 0.4 10^3/uL (0.0-0.5); EOS % 5.0 % (0.0-3.0); LYMPH # 2.2 10^3/uL (1.5-5.0); LYMPH % 30.9 % (24.0-44.0); MONO # 0.6 10^3/uL (0.0-0.8); MONO % 8.7 % (2.0-8.0); NEUTROPHILS # 3.8 10^3/uL (1.5-8.5); NEUTROPHILS % 54.2 % (36.0-66.0); PLATELET COUNT, AUTOMATED 265 10^3/uL (150-450)
[2025-08-06 18:06] LABS: ALT/SGPT 24.0 U/L (7.0-40); AST/SGOT 21.0 U/L (<34); CALCIUM LEVEL 8.9 MG/DL (8.3-10.6); CARBON DIOXIDE LEVEL 29.0 MMOL/L (20-31); CHLORIDE LEVEL 108.0 MMOL/L (98-107); CHOLESTEROL LEVEL 178.0 MG/DL (<200); CHOLESTEROL RISK RATIO 2.6 (<5); CREATININE FOR GFR 1.15 MG/DL (0.70-1.30); GLOMERULAR FILTRATION RATE 70.6 (>49); LDL CHOLESTEROL 77.5 MG/DL (<100); NON-HDL-C 109.7 MG/DL; POTASSIUM SERUM 4.0 MMOL/L (3.5-5.1); PSA SCREENING 0.76 NG/ML (< 4.00); SODIUM LEVEL 145.0 MMOL/L (136-145); TRIGLYCERIDES LEVEL 161.0 MG/DL (<150)
== END ==
LOC: M LAB 16:53
PROVIDERS: ATTEND Family Medicine
DX: Z00.00 Encounter for general adult medical examination without abnormal findings (principal); Z12.5 Encounter for screening for malignant neoplasm of prostate
CPT/HCPCS: 36415; 80053; 80061; 85025; G0103